=== PATIENT | male | born 1975 | race African-American/Black ===

== ENCOUNTER 2020-02-22 00:51 | Emergency (ER) | payer MEDICAID, OTHER ==
[~2020-02-22] VITALS: Ht 175.3 cm; Wt 87.0 kg
[~2020-02-22 00:51] MED LIST: BENADRYL; DULO60CA44 PO; QUET300T2 PO
[2020-02-22 01:47] LABS: BASOPHILS % 0.6 % (0.0-2.0); EOSINOPHILS % 0.9 % (0.0-5.0); HEMATOCRIT. 38.6 % (42.0-52.0); HEMOGLOBIN. 13.5 g/dL (14.0-18.0); MEAN CORPUSCULAR HEMOGLOBIN 31.6 pg (28.0-32.0); MEAN CORPUSCULAR VOLUME 90.6 fL (80.0-94.0); MONOCYTES % 7.1 % (2.0-8.0); NEUTROPHILS % 69.4 % (40.0-76.0); PLATELET 194 x1000/uL (130-400); RED BLOOD CELL COUNT 4.26 mill/uL (4.7-6.1)
[2020-02-22 01:53] LABS: CHLORIDE 109 mEq/L (98-107)
[2020-02-22 01:58] LABS: ETHANOL BLOOD < 10 mg/dL
[2020-02-22 02:32] LABS: CLARITY URINE CLEAR (CLEAR); COLOR URINE YELLOW (YELLOW); KETONES URINE TRACE (NEGATIVE); LEUKOCYTE ESTERASE URINE NEGATIVE (NEGATIVE); NITRITE URINE NEGATIVE (NEGATIVE); OCCULT BLOOD URINE NEGATIVE (NEGATIVE); PROTEIN URINE NEGATIVE (NEGATIVE); SPECIFIC GRAVITY URINE 1.031 (1.005-1.030)
[2020-02-22 02:42] LABS: *AMPHETAMINES SCREEN URINE NEGATIVE (NEGATIVE); *BARBITURATES SCREEN URINE NEGATIVE (NEGATIVE); *BENZODIAZEPINES SCREEN URINE NEGATIVE (NEGATIVE)
[2020-02-22 02:43] LABS: *COCAINE SCREEN URINE NEGATIVE (NEGATIVE); CANNABINOID URINE SCREEN PRESUMTIVE POSITIVE (NEGATIVE); METHADONE URINE SCREEN NEGATIVE (NEGATIVE); OPIATES URINE SCREEN NEGATIVE (NEGATIVE); PHENCYCLIDINE URINE SCREEN NEGATIVE (NEGATIVE)
[2020-02-24 09:43] VITALS: BP 131/75
== END 2020-02-24 10:07 | disposition home or self-care (01) ==
LOC: ER 00:51
DX: R45.851 Suicidal ideations (principal); F17.290 Nicotine dependence, other tobacco product, uncomplicated; Z20.828 Contact with and (suspected) exposure to other viral communicable diseases
CPT/HCPCS: 36415; 80053; 80305; 80320; 81003; 85025; 99285; 99406; C9803; G0480